=== PATIENT | female | born 1940 | race Caucasian/White ===

== ENCOUNTER 2016-06-25 14:58 | Outpatient (CLI) | payer MEDICARE | END 2016-06-25 14:59 | disposition home or self-care (01) | LOC: NC 14:58 | PROVIDERS: ATTEND Internal Medicine | DX: E11.9 Type 2 diabetes mellitus without complications (principal); Z71.3 Dietary counseling and surveillance; E66.9 Obesity, unspecified ==

== ENCOUNTER 2016-08-06 13:37 | Outpatient (CLI) | payer MEDICARE | END 2016-08-06 13:38 | disposition home or self-care (01) | LOC: NC 13:37 | PROVIDERS: ATTEND Internal Medicine | DX: E11.9 Type 2 diabetes mellitus without complications (principal); Z71.3 Dietary counseling and surveillance; E66.9 Obesity, unspecified ==